=== PATIENT | male | born 1990 | race Two or more races ===

== ENCOUNTER 2025-03-31 12:13 | Emergency (ER) | payer MEDICAID ==
[~2025-03-31] VITALS: Ht 165.1 cm; Wt 59.0 kg
[2025-03-31 12:39] VITALS: BP 107/80; PULSE 104; RESP 18; TEMP 98; O2SAT 98
== END 2025-03-31 14:43 | disposition left against medical advice (07) ==
LOC: EMS 12:30
DX: R51.9 Headache, unspecified (principal); Z53.21 Procedure and treatment not carried out due to patient leaving prior to being seen by health care provider